=== PATIENT | male | born 1975 | race Caucasian/White ===

== ENCOUNTER 2019-09-01 08:22 | Inpatient (IN) | payer BC ==
[~2019-09-01] VITALS: Ht 185.4 cm; Wt 103.9 kg
--- NOTE | ~2019-09-01 | D ---
[facility] [place] [address] DISCHARGE SUMMARY Name: SAVANAH TOPETE Room #: 214-P ADM IN M.R.#: [id number] Admission: 09/01/19 Attend Phys: Malik Hernandez MD, Discharge: Date of : 77 Report #: [id number] THIS REPORT FOR: cc: BALDMOERO - No family physician/PCP BALDOMERO - No family physician/PCP ~ THIS REPORT FOR: //name// CC: BALDOMERO physician/PCP Malik Hernandez [facility] COURSE: This is a 44-year-old male who came in with 2 nights of recurrent significant chest pressure with radiation to bilateral shoulders. Subsequently, found to have an elevated troponin and was taken somewhat urgently to the catheterization lab, although he was pain free at that time. Troponin has peaked at 4. He had an occluded LAD, which sounded like it happened in the last 48 hours or possibly certainly within the last week was fairly well collateralized, so no significant troponin elevation, moderate wall motion abnormality in the anterior inferior apex with an EF of 45%. I placed a 2.75 x 18 Aubrey medicated stent, postdilated 2.9 mm RANDY grade 3 flow. He had only mild disease in the circumflex and the right coronary artery. He is pain free. He feels well. His creatinine is 0.9 today. Troponin is 4.69. Cholesterol was 228, LDL 151, HDL 58, triglycerides 97. Liver function tests were mildly elevated. They have improved. He is an alcohol and tobacco user. H and H is 14 and 42. He has been seen by cardiac rehabilitation. He is up and ambulating without any issues. The groin is soft. DISCHARGE MEDICATIONS: Will include 50 mg of Toprol, 50 mg of losartan, a full aspirin for 1 month, then cut down to a baby, prasugrel 10 mg daily and rosuvastatin 20 mg. Chantix if needed for p.r.n. Smoking cessation obviously strongly recommended and significant reduction in alcohol intake. 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 He can start that next week and ambulating 10 minutes twice a day in the next couple of days. No driving this weekend. DISCHARGE DIAGNOSES: 1. Non-ST elevation myocardial infarction (totally occluded LAD successful stent placement). 2. Mild ischemic cardiomyopathy with anterior and inferior apical hypokinesis, expect this to improve, ejection fraction 45%. 3. Hypercholesterolemia. 4. Borderline hypertension. 5. Tobacco and alcohol use. RECOMMENDATIONS AND PLAN: No lifting for 48 hours. No lying in tub, Jacuzzi or chaney for a week. No MRI or dental work for 3 months. Followup 2 weeks with Cinthia Jonas, nurse practitioner and abbreviated echo to assess LV function. [facility] [address] [place] [address] DISCHARGE SUMMARY Name: SAVANAH TOPETE Room #: 214-P ADM IN M.R.#: [id number] Admission: 09/01/19 Attend Phys: Malik Hernandez MD, Discharge: Date of : 77 Report #: [id number] They will call with any issues. He does not have a primary care physician here. We will obtain one for him. By: [id number] [id number] /nt
[2019-09-01 08:24] VITALS: BP 182/114
[2019-09-01 09:02] LABS: ABSOLUTE NEUTROPHILS 5.8 thou/uL (1.4-8.2); BASOPHILS 0.9 % (0.0-2.0); EOSINOPHILS 2.4 % (0.0-3.0); HEMATOCRIT 45.5 % (42.0-52.0); HEMOGLOBIN 15.5 gm/dL (14.0-18.0); LYMPHOCYTES 26.8 % (24.0-44.0); MCH 32.2 pg (26.0-34.0); MCV 94.8 fL (80.0-100.0); MONOCYTES 7.6 % (1.0-8.0); PLATELET COUNT 269 thou/uL (150-400); POLYS 62.3 % (36.0-66.0); RDW 12.3 % (10.5-14.5); WBC 9.3 thou/uL (4.0-11.0)
[2019-09-01 09:10] LABS: CALCIUM 9.2 mg/dL (8.5-10.1); CREATININE 1.1 mg/dL (0.7-1.3); POTASSIUM 4.3 mmol/L (3.5-5.1)
[2019-09-01 09:19] LABS: TOTAL BILIRUBIN 0.8 mg/dL (<0.1-1.0); TOTAL PROTEIN 7.5 g/dL (6.4-8.2)
[2019-09-01 09:23] LABS: TROPONIN-I 1.08 ng/mL (<0.06)
[2019-09-01 10:09] VITALS: BP 146/92
--- NOTE | 2019-09-01 10:18 | NUR ---
PT TO DIANETIC COUNSELOR AT APPROX 1010. TIMI AT BEDSIDE
[2019-09-01 11:47] LABS: CHOLESTEROL 228 mg/dL (<200); HDL CHOLESTEROL 58 mg/dL (>40); LDL CHOLESTEROL 151 mg/dL (<100); TC:HDL 3.9 Ratio (Not establshd); TRIGLYCERIDE 97 mg/dL (<150); VLDL 19 mg/dL (<40)
[2019-09-01 15:00] VITALS: BP 155/102
[2019-09-01] MEDS ORDERED: NEXIUM 24HR20 M1 PO (15:11)
[2019-09-01 16:20] VITALS: BP 160/98
--- NOTE | 2019-09-01 16:28 | EKG ---
[facility] [place] [address] ELECTROCARDIOGRAM REPORT Name: Ronaldo TOPETE Room #: 214-P ADM IN M.R.#: [id number] Admission: 09/01/19 Attend Phys: Malik Hernandez MD, Discharge: Date of : 77 Report #: [id number] THIS REPORT FOR: cc: FAM - No family physician/PCP FAM - No family physician/PCP Ole Anderson MD ~ THIS REPORT FOR: //name// [facility] ED Test Date: 2019-09-01 Test Time: 08:29:46 Pat Name: Ronaldo TOPETE Department: Room: 214 P Gender: M Hi Ranger Operator: KATHLEEN : 1975 Requested By: Moraima Ann Order Number: [id number] MD: Ole Anderson Measurements Intervals [place] Rate: 97 P: 24 HI: 171 QRS: 8 QRSD: 73 T: 12 QT: 323 QTc: 411 Interpretive Statements Sinus rhythm No previous ECG available for comparison Electronically Signed On 09-01-2019 16:27:51 TOOL CRIB CLERK by Ole Anderson [email or web address] <ELECTRONICALLY SIGNED> By: Ole Anderson MD 09/01/19 1627 8 8 Ole Anderson MD /EPI
--- NOTE | 2019-09-01 17:51 | 2DMMODE ---
[facility] [place] [address] 2 D/M-MODE ECHOCARDIOGRAM Name: Ronaldo OTPETE Room #: 214-P ADM IN M.R.#: [id number] Admission: 09/01/19 Attend Phys: Malik Hernandez MD, Discharge: Date of : 77 Report #: [id number] THIS REPORT FOR: cc: FAM - No family physician/PCP FAM - No family physician/PCP Malik Hernandez MD [facility] ~ APPROVED REPORT Study performed: 09/01/2019 12:37:05 EXAM: Comprehensive 2D, Doppler, and color-flow Echocardiogram Patient Location: CVL Status: routine BSA: 2.33 HR: 75 bpm BP: 146/92 mmHg Rhythm: NSR Other Information Study Quality: Good Indications Chest pain, short of breath. Status post PCI. 2D Dimensions RVDd: 30.11 mm IVSd: 12.00 (7-11mm) LVOT Diam: 23.07 (18-24mm) LVDd: 52.00 mm PWd: 9.78 (7-11mm) Ascending Ao: 34.47 (22-36mm) LVDs: 37.70 (25-40mm) Aortic Root: 38.91 mm Volumes Left Atrial Volume (Systole) Single Plane 4CH: 37.29 mL Single Plane 2CH: 48.80 mL LA ESV Index: 20.00 mL/m2 Aortic Valve AoV Peak Mani.: 1.14 m/s AO Peak Gr.: 5.17 mmHg LVOT Max P.72 mmHg LVOT Max V: 1.09 m/s BRONSON Vmax: 3.99 cm2 [facility] [address] [place] [address] 2 D/M-MODE ECHOCARDIOGRAM Name: SAVANAH TOPETEmiguelina Room #: 214-P [facility] IN .R.#: [id number] Admission: 09/01/19 Attend Phys: Malik Hernandez, Discharge: Date of : 77 Report #: [id number] Mitral Valve E/A Ratio: 0.8 MV Decel. Time: 168.87 ms MV E Max Mani.: 0.60 m/s MV A Mani.: 0.74 m/s MV PHT: 48.97 ms IVRT: 93.43 ms Pulmonary Valve PV Peak Mani.: 0.82 m/s PV Peak Gr.: 2.68 mmHg Pulmonary Vein P Vein S: 0.31 m/s P Vein A: 0.25 m/s P Vein D: 0.25 m/s P Vein A Dur.: 110.7 msec P Vein S/D Ratio: 1.24 Tricuspid Valve TR Peak Mani.: 2.02 m/s RAP Estimate: 5.00 mmHg TR Peak Gr.: 16.28 mmHg PA Pressure: 21.00 mmHg Left Ventricle The left ventricle is normal size. Regional wall motion abnormalities are noted. Mild basal septal hypertrophy is present. Left ventricular systolic function is low normal. LVEF is 50%.ant inf apex hypo Mild diastolic dysfunction is present (impaired relaxation pattern). Right Ventricle The right ventricle is normal size. The right ventricular systolic function is normal. Atria The left atrium size is normal. The right atrium size is normal. Aortic Valve The aortic valve is normal in structure. No aortic regurgitation is present. There is no aortic valvular stenosis. Mitral Valve The mitral valve is normal in structure. Trace mitral regurgitation. Tricuspid Valve The tricuspid valve is normal in structure. Trace tricuspid [facility] [address] [place] [address] 2 D/M-MODE ECHOCARDIOGRAM Name: Ronaldo TOPETE Room #: [address] [place] [address] IN M.R.#: [id number] Admission: 09/01/19 Attend Phys: Malik Hernandez, Discharge: Date of : 77 Report #: [id number] regurgitation. Estimated PAP of 20-25mmHg. Pulmonic Valve The pulmonary valve is normal in structure. Trace pulmonic regurgitation. Great Vessels Aortic root is mildly dilated at 3.9cm. The ascending aorta is normal in size. IVC is normal in size and collapses >50% with inspiration. Pericardium There is no pericardial effusion. <Conclusion> The left ventricle is normal size. Mild basal septal hypertrophy is present. LVEF is 50%.ant inf apex hypo Mild diastolic dysfunction is present (impaired relaxation pattern). The right ventricle is normal size. The left atrium size is normal. The aortic valve is normal in structure. Trace mitral regurgitation. Trace tricuspid regurgitation. Estimated PAP of 20-25mmHg. Aortic root is mildly dilated at 3.9cm. There is no pericardial effusion. <ELECTRONICALLY SIGNED> By: Malik Hernandez MD, FACC 09/01/191749 49 49 Malik Hernandez MD, FACC /INF
--- NOTE | 2019-09-01 19:28 | NUR ---
PT. ARRIVED AROUND 1500; PT. AOX4; ABLE TO TRANSFER FROM CAR TO BED WITHOUT ASSISTANCE; OFF OF BED REST; NO C/O PAIN; R. GROIN C/D/I; EDUCATED ABOUT HOLDING PRESSURE IF COUGHING OR LAUGHING; ST. UNDERSTANDING; EDUCATED ABOUT FALL PREVENTIONS; ST. UNDERSTANDING; THROUGH THE AFTERNOON NO HEMATOMA OVER R. SIDE GROIN AREA; SR ON THE MONITOR; SBP ON THE 155 & 160s; PHYSICIAN NOTIFIED; NO CALLED BACK; MONITORING; PASSED ON REPORT; ASSESSMENT CHARGED; FOLLOWING POC; PASSED ON REPORT;
[2019-09-01 19:55] VITALS: BP 150/90
[2019-09-02 01:44] VITALS: BP 138/91
[2019-09-02 03:54] LABS: HEMATOCRIT 42.4 % (42.0-52.0); HEMOGLOBIN 14.3 gm/dL (14.0-18.0); MCH 31.5 pg (26.0-34.0); MCHC 33.6 g/dL (28.0-37.0); MCV 93.6 fL (80.0-100.0); RBC 4.53 mil/uL (4.50-6.00); RDW 12.3 % (10.5-14.5); WBC 9.9 thou/uL (4.0-11.0)
--- NOTE | 2019-09-02 04:02 | NUR ---
ASSUMED PT CARE AT 1900, PT IS ALERT AND ORIENTEDX4, SR ON THE MONITOR, DENIES CHEST PAIN OR SOB, ASSESSMENTS CHARTED, TERRENCE SITE CDI, NO HEMATOMA NOTED, VS STABLE, RESTED WELL, WILL CONTINUE TO MONITOR
[2019-09-02 04:16] LABS: ALBUMIN 3.4 g/dL (3.4-5.0); CREATININE 0.9 mg/dL (0.7-1.3); POTASSIUM 3.4 mmol/L (3.5-5.1); TOTAL BILIRUBIN 0.9 mg/dL (<0.1-1.0); TOTAL PROTEIN 6.4 g/dL (6.4-8.2)
[2019-09-02 04:30] LABS: TROPONIN-I 4.69 ng/mL (<0.06)
[2019-09-02 04:50] VITALS: BP 137/98
[2019-09-02 08:00] VITALS: BP 157/105
--- NOTE | 2019-09-02 08:01 | EKG ---
[facility] [place] [address] ELECTROCARDIOGRAM REPORT Name: Ronaldo TOPETE Room #: 214-[facility] M.R.#: [id number] Admission: 09/01/19 Attend Phys: Malik Hernandez MD, Discharge: Date of : 77 Report #: [id number] THIS REPORT FOR: cc: FAM - No family physician/PCP FAM - No family physician/PCP Ole Anderson MD ~ THIS REPORT FOR: //name// [facility] Test Date: 2019-09-02 Test Time: 07:45:42 Pat Name: Ronaldo TOPETE Department: Room: 214 P Gender: M Pediatrics Physician: Junior DALEY : 1975 Requested By: Malik Hernandez Order Number: [id number] MD: Ole Anderson Measurements Intervals [place] Rate: 75 P: 33 MA: 181 QRS: 2 QRSD: 82 T: 17 QT: 388 QTc: 434 Interpretive Statements Sinus rhythm ST elev, probable normal early repol pattern Compared to ECG 09/01/2019 08:29:46 ST (T wave) deviation now present Electronically Signed On 09-02-2019 8:00:12 HUMAN RESOURCES ASSISTANT by Ole Anderson [email or web address] <ELECTRONICALLY SIGNED> By: Ole Anderson MD 09/02/19799 4 4 Ole Anderson MD /EPI
[2019-09-02] MEDS ORDERED: EFFIENT10 MG PO (08:46)
[2019-09-02] MEDS ORDERED: METOPROLOL SUCC50 MG PO (08:46)
[2019-09-02] MEDS ORDERED: ASPIRIN325 PO (08:46)
[2019-09-02] MEDS ORDERED: COZAAR 50 MG TA50 MG PO (08:46)
[2019-09-02] MEDS ORDERED: CRESTOR20 MG PO (08:46)
--- NOTE | 2019-09-02 11:12 | NUR ---
RECEIVED PT'S CARE AROUND 704; PT. ON BED; AOX4; AWAKE; R. GROIN INCISION C/D/I; DURING AM ASSESSMENT NO C/O PAIN; AM MEDICATION GIVEN; EDUCATED ABOUT MEDICATION; SR ON THE MONITOR; D/C ORDERS ON PLACE; PT. NOTIFIED; ST. UNDERSTANDING; ASSESSMENT CHARGED; FOLLOWED POC; WORKING ON D/C ORDERS;
[2019-09-02 11:25] VITALS: BP 157/105
== END 2019-09-02 12:00 | disposition home or self-care (01) | DRG 247 ==
LOC: ER 08:22 → EROBS 10:02 → 2N 10:02 → ENTRNSPT 09-02 11:44 → EDTRNSPTSTS 09-02 11:50 → 2N 09-02 12:00
PROVIDERS: Student in an Organized Health Care Education/Training Program; ADMIT Internal Medicine Cardiovascular Disease
PROC: 027034Z Dilation of Coronary Artery, One Artery with Drug-eluting Intraluminal Device, Percutaneous Approach (ICD-10-PCS; principal; 2019-09-01)
PROC: 4A023N7 Measurement of Cardiac Sampling and Pressure, Left Heart, Percutaneous Approach (ICD-10-PCS; principal; 2019-09-01)
PROC: B2151ZZ Fluoroscopy of Left Heart using Low Osmolar Contrast (ICD-10-PCS; principal; 2019-09-01)
PROC: B4101ZZ Fluoroscopy of Abdominal Aorta using Low Osmolar Contrast (ICD-10-PCS; principal; 2019-09-01)
PROC: B2111ZZ Fluoroscopy of Multiple Coronary Arteries using Low Osmolar Contrast (ICD-10-PCS; principal; 2019-09-01)
DX: I21.4 Non-ST elevation (NSTEMI) myocardial infarction (principal); I25.5 Ischemic cardiomyopathy; E78.00 Pure hypercholesterolemia, unspecified; I10 Essential (primary) hypertension; G89.29 Other chronic pain; M54.9 Dorsalgia, unspecified; F17.210 Nicotine dependence, cigarettes, uncomplicated; R00.0 Tachycardia, unspecified; E78.5 Hyperlipidemia, unspecified; Z88.0 Allergy status to penicillin; Z71.6 Tobacco abuse counseling
CPT/HCPCS: 10081

== ENCOUNTER → 2020-03-08 | Outpatient (CLI) | payer BC ==
[~2020-03-08] MED LIST: ASPIRIN325 PO; COZAAR 50 MG TA50 MG PO; CRESTOR20 MG PO; DEXAMETHASONE1 MG PO; EFFIENT10 MG PO; FLEXERIL PO; HYDROCODON-ACE1 EAC7 PO; METOPROLOL SUCC50 MG PO; NEXIUM 24HR20 M1 PO
== END ==
LOC: SJCVCIMAG 10:13
PROVIDERS: ATTEND Internal Medicine Cardiovascular Disease
DX: I25.10 Atherosclerotic heart disease of native coronary artery without angina pectoris (principal); E78.5 Hyperlipidemia, unspecified; I10 Essential (primary) hypertension

== ENCOUNTER 2020-06-06 09:51 | Inpatient (IN) | payer BC ==
[~2020-06-06] VITALS: Ht 185.4 cm; Wt 115.2 kg
--- NOTE | ~2020-06-06 | HC ---
[facility] [place] [address] CONSULTATION Name: SAVANAH TOPETE Room #: 200-I ADM IN .R.#: [id number] Admission: 06/06/20 Attend Phys: Lorenzo Aguila MD Discharge: Date of : 77 Report #: [id number] THIS REPORT FOR: cc: Sujit Donnelly James A. DO McElhinney, Christian C. MD ~ DATE OF SERVICE: 06/07/2020 HISTORY OF PRESENT ILLNESS: The patient is a 45-year-old male with a history of coronary artery disease, underwent stent placement in 08/2019 with a non-STEMI at that time. He has been on Effient and aspirin. He has a history of chronic diarrhea for many years. He states he averages 3-4 loose bowel movements per day. He denies any blood in the stools. No abdominal pain. His weight has been stable. No previous history of colonoscopy. He also has intermittent nausea, vomiting approximately 3-4 times per week. Sometimes he feels like this is due to his medications. He had an upper endoscopy in his 20s reportedly negative at that time. He has been taking Nexium for reflux for many years. He came in the hospital with feeling numbness in his arms and legs and was noted to be in significant electrolyte abnormalities including a low magnesium, potassium and calcium. The patient does drink anywhere from 6-10 beers on a daily basis. His electrolytes are now being replaced. His PPI has been switched to Pepcid. He is feeling better. Denies any further numbness in his arms or legs. He denies any chest pain, shortness of breath, cough, fevers or chills. PAST MEDICAL HISTORY: Coronary artery disease, status post stent placement in 08/2019, hypertension, previous back surgery with laminectomy, alcohol abuse. REVIEW OF SYSTEMS: As per HPI. MEDICATIONS ON ADMISSION: Effient, metoprolol, aspirin 325 mg, Crestor, Cozaar, hydrocodone p.r.n., Nexium, amlodipine. SOCIAL HISTORY: Previous smoker, quit. Alcohol, he drinks daily 6-10 beers per day. FAMILY HISTORY: Negative for colon cancer or inflammatory bowel disease. ALLERGIES: PENICILLIN. PHYSICAL EXAMINATION: VITAL SIGNS: Temperature is 37.3, pulse 112, respiratory rate 17, blood pressure 152/109. GENERAL: He is alert and oriented x 3, in no acute distress. HEENT: Sclerae nonicteric. Oropharynx clear. [facility] [address] [place] [address] CONSULTATION Name: SAVANAH TOPETE Room #: 200-I ADM IN [facility].#: [id number] Admission: 06/06/20 Attend Phys: Lorenzo Aguila MD Discharge: Date of : 77 Report #: [id number] NECK: Supple, without lymphadenopathy. CARDIOVASCULAR: Regular rhythm, slightly tachycardic. CHEST: Clear to auscultation bilaterally. ABDOMEN: Soft, nontender, nondistended, normoactive bowel sounds. EXTREMITIES: No cyanosis, clubbing or edema. LABORATORY DATA: WBC is 9.9, hemoglobin 12.1, platelet count is 206. Sodium 140; potassium is 2.5 today, on admission was 2.6; chloride 100; bicarbonate 26; BUN 9; creatinine 1.1; glucose 99. AST is 112, lipase 165, total bilirubin 1.1; calcium 5.7, 6.1 on admission yesterday; phosphorus 3.2; magnesium 0.8, was 0.4 yesterday; alkaline phosphatase 149; ALT is 116; total protein 7.3; albumin 3.7. Troponin less than 0.06. Stool studies have been ordered. Endomysial antibody also ordered. Chest x-ray yesterday, minor increase medial basilar density suggesting atelectasis, no acute chest process. ASSESSMENT AND PLAN: 1. Chronic diarrhea. The patient has had this for many years. Etiology is unclear. Doubt infectious etiology, less likely inflammatory bowel disease as the patient is not having bleeding or abdominal pain, suspect this may be multifactorial, although need to consider irritable bowel syndrome as well as microscopic colitis. I would recommend proceeding with colonoscopy at a later date when the patient's electrolytes are stable and when he can go off his anticoagulation therapy. There is no history of lactose intolerance. Medications may be playing a role. 2. Gastroesophageal reflux disease. The patient has been on long-term PPI therapy. Agree with renal that this should be held at this time due to significant electrolyte abnormalities and switched to H2 caitlyn. As the patient is also having intermittent nausea and vomiting on a regular basis, I would recommend proceeding with an upper endoscopy at the time of his colonoscopy for further evaluation. I explained to the patient again due to his anticoagulation therapy and electrolyte abnormalities, we will need to consider doing endoscopies at a later date. 3. Significant electrolyte abnormalities as described above. The patient is having electrolytes replaced at this time. Denies any further numbness in his extremities. 4. Alcohol abuse, would recommend decreasing alcohol consumption. Thank you for allowing me to participate in his care. By: 1110 1149 Darius Virgen MD /nt
[2020-06-06 09:52] VITALS: BP 157/120
--- NOTE | 2020-06-06 10:36 | EKG ---
[facility] [place] [address] ELECTROCARDIOGRAM REPORT Name: SAVANAH TOPETE Room #: PRE M..#: [id number] Admission: Attend Phys: Discharge: Date of : 77 Report #: [id number] THIS REPORT FOR: cc: Sujit Donnelly James A. DO Santiago, Patrick MD [facility] THIS REPORT FOR: //name// [facility] ED Test Date: 2020-06-06 Test Time: 10:02:28 Pat Name: SAVANAH TOPETE Department: Room: Gender: Household Chores: sky : 1975 Requested By: Tiburcio Wakefield Order Number: [id number] MD: Moshe Antunez Measurements Intervals [place] Rate: 101 P: 33 [place]: 150 QRS: 4 QRSD: 83 T: 16 QT: 372 QTc: 483 Interpretive Statements Sinus tachycardia Low voltage, precordial leads Borderline prolonged QT interval Baseline wander in lead(s) I,II,aVR,aVL,aVF,V1,V2,V3,V5 Compared to ECG 09/02/2019 07:45:42 Low QRS voltage now present Sinus rhythm no longer present ST (T wave) deviation no longer present Electronically Signed On 06-06-2020 10:36:42 ANIMAL ANATOMY TEACHER by Moshe Antunez [email or web address] <ELECTRONICALLY SIGNED> By: Moshe Antunez MD, FACC 06/06/20 1036 1002 1002 Moshe Antunez MD, FAC /EPI
[2020-06-06 10:38] LABS: ABSOLUTE NEUTROPHILS 6.6 thou/uL (1.4-8.2); BASOPHILS 0.9 % (0.0-2.0); EOSINOPHILS 1.8 % (0.0-3.0); HEMATOCRIT 39.7 % (42.0-52.0); HEMOGLOBIN 13.5 gm/dL (14.0-18.0); LYMPHOCYTES 21.4 % (24.0-44.0); MCH 31.5 pg (26.0-34.0); MCHC 34.1 g/dL (28.0-37.0); MCV 92.5 fL (80.0-100.0); MONOCYTES 8.8 % (1.0-8.0); PLATELET COUNT 240 thou/uL (150-400); POLYS 67.1 % (36.0-66.0); RBC 4.29 mil/uL (4.50-6.00); RDW 13.1 % (10.5-14.5); WBC 9.9 thou/uL (4.0-11.0)
[2020-06-06 11:04] LABS: ANION GAP 16 mmol/L (7-16); BUN 10 mg/dL (7-18); CALCIUM 6.1 mg/dL (8.5-10.1); CHLORIDE 100 mmol/L (98-107); CO2 24 mmol/L (21-32); CREATININE 1.1 mg/dL (0.7-1.3); GLUCOSE 108 mg/dL (74-106); LIPASE 165 U/L (73-393); SODIUM 140 mmol/L (136-145); TROPONIN-I <0.06 ng/mL (<0.06)
[2020-06-06 11:06] LABS: POTASSIUM 2.6 mmol/L (3.5-5.1)
[2020-06-06] MEDS ORDERED: NORVASC 2.5 MG2.5 M1 PO (11:19)
[2020-06-06 11:23] LABS: MAGNESIUM 0.4 mg/dL (1.8-2.4)
[2020-06-06 11:39] LABS: ALBUMIN 3.7 g/dL (3.4-5.0); DIRECT BILIRUBIN 0.2 mg/dL (<0.1-0.2); TOTAL BILIRUBIN 1.1 mg/dL (0.2-1.0); TOTAL PROTEIN 7.3 g/dL (6.4-8.2)
[2020-06-06 17:00] VITALS: BP 129/85
[2020-06-06 18:00] VITALS: BP 129/85
--- NOTE | 2020-06-06 18:09 | NUR ---
PT. ADMITTED TO UNIT NOW, DENIES ANY SOB, NO CP. RIGHT HAND AND LEFT TREMORS NOTICED. STATED HE DRINKS DAILY 10 BEERS A DAY ON [place]. WILL MONITOR FOR DT'S AND WORSENING OF ETOH WITHDRAWLS. IV SITE FLUSHES NO SIGN'S OF INFILTRATION. DENIES ANY NUMBNESS ANYMORE AND TINGLING HAS RESOLVED FAILRY WELL TOO HE STATED. LIFE PARTNER AT BEDSIDE WITH HIM AND SUPPORTIVE OF CARE. EXPLAINED POC AND MANAGED EXPECTATIONS.
[2020-06-06 20:30] VITALS: BP 143/98
[2020-06-06 23:45] VITALS: BP 153/98
--- NOTE | 2020-06-07 03:24 | NUR ---
Assumed pt care at 1900. Pt is alert and oriented. No sign of distress noted in pt. Pt is laying in bed. Denies any pain. Pt is ambulatory. Assessment completed and documented. Scheduled meds administered to pt. No acute events overnight. Continue to monitor. No further needs at this time.
[2020-06-07 03:46] VITALS: BP 145/104
[2020-06-07 05:46] LABS: HEMATOCRIT 35.5 % (42.0-52.0); HEMOGLOBIN 12.1 gm/dL (14.0-18.0); MCH 31.9 pg (26.0-34.0); MCHC 34.2 g/dL (28.0-37.0); MCV 93.3 fL (80.0-100.0); RBC 3.8 mil/uL (4.50-6.00); RDW 12.6 % (10.5-14.5); WBC 9.9 thou/uL (4.0-11.0)
[2020-06-07 06:06] LABS: CREATININE 1.1 mg/dL (0.7-1.3)
[2020-06-07 06:29] LABS: POTASSIUM 2.5 mmol/L (3.5-5.1)
[2020-06-07 06:30] LABS: CALCIUM 5.7 mg/dL (8.5-10.1); MAGNESIUM 0.8 mg/dL (1.8-2.4)
[2020-06-07 07:30] VITALS: BP 152/109
[2020-06-07 07:57] VITALS: BP 152/109
[2020-06-07 11:55] VITALS: BP 146/96
[2020-06-07 12:20] LABS: CALCIUM 7.1 mg/dL (8.5-10.1); CREATININE 1.2 mg/dL (0.7-1.3); POTASSIUM 3.3 mmol/L (3.5-5.1)
[2020-06-07 12:26] LABS: CALCIUM 7.3 mg/dL (8.5-10.1); CREATININE 1.2 mg/dL (0.7-1.3); PHOSPHORUS 3.6 mg/dL (2.5-4.9)
[2020-06-07 12:43] LABS: MAGNESIUM 2.3 mg/dL (1.8-2.4)
[2020-06-07 15:37] VITALS: BP 149/98
[2020-06-07 18:07] LABS: CREATININE 1.2 mg/dL (0.7-1.3); POTASSIUM 3.8 mmol/L (3.5-5.1)
--- NOTE | 2020-06-07 18:21 | NUR ---
EDUCATED PT ON ELECTROLYTE IMBALANCES, HE AND SIG OTHER VERBALIZED UNDERSTANDING, TOOK IBUPROFEN FOR PAIN, WILL MONITOR
[2020-06-07 20:15] VITALS: BP 161/101
[2020-06-08] VITALS: BP 151/104
[2020-06-08 03:40] VITALS: BP 173/101
--- NOTE | 2020-06-08 04:04 | NUR ---
Assumed pt care at 1900. Pt is alert and oriented. No sign of distress noted in pt. Pt is ambulatory. Assessment completed and documented. Pt is stable through the night. Electrolytes stable. Denies pain. Scheduled meds administered to pt. No acute events, continue to monitor, no further needs at this time.
[2020-06-08 05:41] LABS: HEMATOCRIT 38.6 % (42.0-52.0); HEMOGLOBIN 12.8 gm/dL (14.0-18.0); MCH 31.3 pg (26.0-34.0); MCHC 33.1 g/dL (28.0-37.0); MCV 94.6 fL (80.0-100.0); RBC 4.08 mil/uL (4.50-6.00); RDW 12.8 % (10.5-14.5); WBC 9.8 thou/uL (4.0-11.0)
[2020-06-08 05:47] LABS: CALCIUM 7.5 mg/dL (8.5-10.1); MAGNESIUM 1.8 mg/dL (1.8-2.4); POTASSIUM 3.4 mmol/L (3.5-5.1)
[2020-06-08 08:05] VITALS: BP 147/98
[2020-06-08 08:14] VITALS: BP 147/98
--- NOTE | 2020-06-08 10:29 | NUR ---
Chart reviewed and case discussed with the care team. Pt is from home and was indep prior to admission. He has health ins in place and his pcp is Dr. Donnelly. Montioring labs and they are improving. Likely dc home later today or tomorrow. No cm interventions indicated.
--- NOTE | 2020-06-08 10:36 | NUR ---
ORDERS RECEIVED FOR PT EVAL AND TREAT. Pt HAS BEEN UP AD JAVY IN ROOM WITHOUT DIFFICULTY PER Pt, S/O, AND RN. LIVES WITH S/O IN HOME WITH STAIRS TO BASEMENT. HAS NO DIFFICULTY WITH STAIRS. DENIED RECENT FALLS. DOES NOT USE GAIT AIDS. Pt REPORTING NO MOBILITY DIFFICULTIES AND DECLINING PT NEEDS AT THIS TIME. PARASTHESIAS THAT WERE PRESENT ON ADMISSION HAVE RESOLVED PER Pt. ACUTE PT TO SIGN OFF. PLEASE CONSIDER RE-CONSULTING PT IF Pt HAS DECLINE IN STRENGTH, ENDURANCE, MOBILITY, OR BALANCE.
[2020-06-08 10:56] LABS: URINE CREATININE-RANDOM* 69.9 mg/dL; URINE POTASSIUM-RANDOM* 18.9 mmol/L
[2020-06-08] MEDS ORDERED: CALTRATE-600 W1 EACH PO (11:08)
[2020-06-08] MEDS ORDERED: MAGOX 400400 MG PO (11:08)
[2020-06-08] MEDS ORDERED: LOPERAMIDE 2 MG2 M1 PO (11:12)
[2020-06-08 11:20] VITALS: BP 148/84
[2020-06-08 11:41] VITALS: BP 148/84
--- NOTE | 2020-06-08 12:17 | NUR ---
DC INSTRUCTIONS REVIEWED WITH PT AND HIS "GIRLFRIEND" BOTH VERBALIZED UNDERSTANDING, AWARE OF WHICH CVS TO HAND BENDER PRESCRIPTIONS, TELE REMOVED, IV REMOVED, PT DRESSED AND LEFT WITH GIRLFRIEND, TOOK ALL BELONGINGS.
[2020-06-09 03:06] LABS: 25-HYDROXY TOTAL 9.2 ng/mL (30.0-100.0)
== END 2020-06-08 12:10 | disposition home or self-care (01) | DRG 641 ==
LOC: ER 09:51 → EROBS 11:58 → 2N 17:13
PROVIDERS: Emergency Medicine; Internal Medicine Nephrology; Nurse Practitioner Family; ADMIT Internal Medicine; ATTEND Internal Medicine
DX: E87.6 Hypokalemia (principal); E83.42 Hypomagnesemia; I25.10 Atherosclerotic heart disease of native coronary artery without angina pectoris; I10 Essential (primary) hypertension; E83.51 Hypocalcemia; K52.9 Noninfective gastroenteritis and colitis, unspecified; K21.9 Gastro-esophageal reflux disease without esophagitis; F10.10 Alcohol abuse, uncomplicated; I25.2 Old myocardial infarction; Z88.0 Allergy status to penicillin; Z95.5 Presence of coronary angioplasty implant and graft; Z79.899 Other long term (current) drug therapy
CPT/HCPCS: 10081

== ENCOUNTER → 2020-10-03 | Outpatient (CLI) | payer BC ==
[~2020-10-03] MED LIST changes: +CALTRATE-600 W1 EACH PO; +LOPERAMIDE 2 MG2 M1 PO; +MAGOX 400400 MG PO; +NORCO 10-325 T1 EACH PO; +NORVASC 2.5 MG2.5 M1 PO
== END ==
LOC: SJCVCIMAG 08:15
PROVIDERS: ATTEND Internal Medicine Cardiovascular Disease
DX: R06.00 Dyspnea, unspecified (principal); R53.83 Other fatigue; I25.10 Atherosclerotic heart disease of native coronary artery without angina pectoris; Z98.61 Coronary angioplasty status; Z87.891 Personal history of nicotine dependence

== ENCOUNTER → 2021-06-14 | Outpatient (CLI) | payer BC | LOC: ULTRA 11:32 | PROVIDERS: ATTEND Family Medicine | DX: R60.0 Localized edema (principal); M79.89 Other specified soft tissue disorders; M79.604 Pain in right leg ==